=== PATIENT | male | born 1980 | race Caucasian/White ===

== ENCOUNTER 2022-12-12 07:32 | Emergency (ER) | payer BC, SELFPAY ==
--- NOTE | ~2022-12-12 | CT_ITS ---
EXAMINATION: CT ABDOMEN AND PELVIS WITH CONTRAST CLINICAL INFORMATION: Flank pain with white count of greater than 20,000 and history of renal calculi COMPARISON: None available. TECHNIQUE: Multidetector volumetric images were obtained from the superior aspect of the liver through the pubic symphysis following administration 85 mL of Omnipaque 350 intravenous contrast. Sagittal and coronal reformatted images were obtained on the technologist's workstation. Oral contrast: No This CT examination was performed using dose optimization techniques as appropriate, variously including the following: *Automated exposure control *Adjustment of mA and/or kV according to patient size (this includes techniques or standardized protocols for targeted exams where dose is matched to indication/reason for exam; i.e. extremities or head) *Use of iterative reconstruction technique DLP: 458 mGy-cm FINDINGS: LUNG BASES: The visualized lung bases are unremarkable. There is minimal elevation of the left hemidiaphragm LIVER, GALLBLADDER, AND BILIARY TREE: The liver is enlarged measuring 21.6 cm in cephalocaudad dimension. Attenuation difficult to rounder and backer after IV contrast.. 2 tiny hypodensities are seen in the liver the largest in the left lobe measuring at most 5 mm in size. This measures water density consistent with a benign cyst. No worrisome solid focal hepatic lesion or biliary ductal dilatation is present. The gallbladder is unremarkable with no evidence of radiopaque gallstones, gallbladder wall thickening, or obvious pericholecystic inflammatory changes. PANCREAS: Unremarkable. SPLEEN: Unremarkable. ADRENAL GLANDS: Unremarkable. KIDNEYS AND URETERS: The kidneys are normal in size, shape, and attenuation. There is a benign lower pole Bosniak class I left renal cyst present. No solid masses. No hydronephrosis, hydroureter, or calculi seen. No perinephric stranding. BLADDER: Unremarkable. GASTROINTESTINAL TRACT: Extensive colonic diverticular changes are present. In the proximal descending colon and there is an area of marked inflammatory change around the colon with associated thickening of the anterior pararenal fascia and lateral conal fascia. Tiny amount of ill-defined fluid is present but no drainable collections are seen. No extraluminal air is seen. Findings are consistent with acute uncomplicated diverticulitis. The small bowel is unremarkable. The appendix is not seen with certainty but there is no evidence of appendicitis appendicitis. ABDOMINAL WALL: No significant hernia is appreciated. LYMPH NODES: Normal. VASCULAR: Unremarkable. PELVIC VISCERA: Mild BPH. Seminal vesicles appear normal. OSSEOUS STRUCTURES: Unremarkable. CT/CT abdomen pelvis w IV con IMPRESSION: Acute uncomplicated diverticulitis involving the proximal descending colon. Fleischner guidelines were followed.
[2022-12-12 07:43] VITALS: BP 133/83; PULSE 80; RESP 18; TEMP 36.6; O2SAT 98; BMI 28.1
[2022-12-12 08:00] LABS: Appearance Urine Cloudy; Color Urine Dark Yellow; Glucose Urine UA Negative (Negative); Leukocyte Esterase Urine Negative (Negative); Nitrite Urine Negative (Negative); PH 5.5 (5.0-9.0); Specific Gravity - Urine 1.025 (1.005-1.025); UMIC TRIGGER UACC YES; Urine Blood Small (1+) (Negative); Urine Ketones Trace mg/dL (Negative); Urine Protein 30 (1+) mg/dL (Neg-Trace)
[2022-12-12 08:02] LABS: Bacteria Urine None Seen (None Seen); Hyaline Casts Urine 0-2 /LPF (0-2); Squamous Epithelial Cell Urine 0-2 /HPF (0-2); WBC Urine 0-5 /HPF (0-5)
[2022-12-12 08:07] LABS: Basophils Absolute Auto 0.1 X10*3/uL (0.0-0.2); Basophils Percent Auto 0.3 % (0-2); Eosinophils Absolute Auto 0.2 X10*3/uL (0.0-0.4); Eosinophils Percent Auto 0.9 % (0-4); Hematocrit 46.7 % (42.0-52.0); Hemoglobin 15.7 g/dl (14.0-18.0); Imm Gran Abs Auto 0.12 X10*3/uL (0.00-0.03); Imm Gran Pct Auto 0.6 % (0.0-0.4); Lymphocytes Absolute Auto 3.1 X10*3/uL (1.2-4.9); Lymphocytes Percent Auto 14.3 % (20-40); MANUAL DIFF FLAG SCAN; Mean Corpuscular HGB Conc 33.6 g/dl (31.0-36.0); Mean Corpuscular Hemoglobin 28.6 pg (27.0-33.0); Mean Corpuscular Volume 85.1 fL (80.0-98.0); Mean Platelet Volume 10.1 fL (9.4-12.4); Monocytes Absolute Auto 1.8 X10*3/uL (0.1-1.2); Monocytes Percent Auto 8.3 % (2-11); Neutrophils Absolute Auto 16.5 x10*3/uL (2.0-8.3); Neutrophils Percent Auto 75.6 % (45-73); Platelet Count 284 X10*3/uL (160-400); Red Blood Count 5.49 X10*6/uL (4.60-5.80); Red Cell Distribution Width 12.9 % (11.0-16.0); SCAN SMEAR FLAG 1; White Blood Count 21.8 X10*3/uL (4.8-10.8)
[2022-12-12 08:11] LABS: Anion Gap 13 (12-20); Blood Urea Nitrogen 10 mg/dL (9-16); Calcium 9.4 mg/dL (8.4-10.2); Carbon Dioxide 27 mmol/L (22-29); Chloride 104 mmol/L (96-108); Creatinine Clr Calc Pharmacy 97.5; Estimated Glomerular Filt Rate > 60; Glucose Random 120 mg/dL (60-115); Potassium 4.1 mmol/L (3.3-5.1); Sodium 140 mmol/L (135-145)
[2022-12-12 09:19] LABS: SLIDE REVIEW VERIFIED
--- NOTE | 2022-12-12 09:21 | ED.GENADULT ---
HPI - General Adult General Chief complaint: Abdominal Pain Stated complaint: abd pain Time Seen by Provider: 12/12/22 09:21 Source: patient Mode of arrival: ambulatory Limitations: no limitations History of Present Illness HPI narrative: Patient is a 42 year old assigned male at with a history of diverticulitis and kidney stones presenting to the emergency department today with abdominal pain. Patient states that over the last 2 days he has had abdominal pain and back pain. Patient states that his last bowel movement was yesterday and he has been nauseous but has not thrown up. Patient denies any dizziness, lightheadedness, vomiting, fever, chills, blurry vision, double vision, loss of vision, chest pain, difficulty breathing, shortness of breath, night sweats, pain with urination, increased urinary frequency, increased urinary urgency, blood in his urine or stool, syncope or a near syncopal episode, recent trauma or falls, bowel incontinence, bladder incontinence, bowel retention, bladder retention, or any other complaints at this time. Onset (ago): day(s) (2) Location: back and abdomen Severity: mild Severity scale (1-10): 4 Quality: aching and dull Pain Consistency: constant Relieving factors: none Exacerbating factors: none Associated symptoms: nausea/vomiting Treatments prior to arrival: none Related Data Previous Rx's Medication Instructions Recorded amoxicillin 875 mg tablet 875 mg PO BID 7 days #14 tabs 12/12/22 ondansetron 4 mg disintegrating 4 mg PO Q8H 3 days #9 tabs 12/12/22 tablet Allergies Allergy/AdvReac Type Severity Reaction Status Date / Time Sulfa (Sulfonamide AdvReac Eye Verified 12/12/22 07:43 Antibiotics) Swelling Review of Systems Constitutional: Constitutional: Reports no additional constitutional complaints, Denies chills, Denies fever(s) and Denies night sweats Eyes: Eyes: Reports no additional eye complaints, Denies blurry vision, Denies change in vision, Denies diplopia, Denies eye discharge, Denies loss of vision and Denies eye pain ENT: Denies dizziness Cardiovascular: Cardiovascular: Reports no additional cardiovascular complaints, Denies chest pain, Denies lightheadedness, Denies Loss of Consciousness and Denies dyspnea Respiratory: Respiratory: Reports no additional respiratory complaints and Denies dyspnea Gastrointestinal: Gastrointestinal: Reports no additional gastrointestinal complaints, Reports abdominal pain, Denies melena, Denies hematochezia, Denies change in bowel habits, Denies change in stool character, Reports nausea and Denies vomiting Genitourinary: Genitourinary: Reports no additional male genitourinary complaints, Denies hematuria, Denies oliguria, Denies difficulty urinating, Denies dysuria, Denies urinary frequency, Denies urinary hesitancy, Denies urinary incontinence and Denies urinary urgency Musculoskeletal: Musculoskeletal: Reports no additional musculoskeletal complaints, Denies numbness and Denies tingling Neurologic: Denies dizziness, Denies loss of vision, Denies numbness and Denies tingling Psychiatric: Psychiatric: Reports no additional psychiatric complaints Endocrine: Endocrine: Reports no additional endocrine complaints Hematologic/Lymphatic: Hematologic/Lymphatic: Reports no additional hematologic/lymphatic complaints Allergic/Immunologic: Allergic/Immunologic: Reports no additional allergic/immunologic complaints PMFSH Past Medical History Attestation statement: The following information was validated with the patient. Source: old records reviewed and nursing notes reviewed Social History Social History Advance Directives: No Physical Exam ED Vital Signs: Vital Signs - 24 hr 12/12/22 07:43 12/12/22 09:44 Temperature 97.8 F 99.0 F Pulse Rate 80 69 Respiratory Rate 18 16 Blood Pressure 133/83 120/72 Pulse Oximetry 98 98 Oxygen Delivery Method Room Air Room Air BMI result Body Mass Index 28.1 Const General: cooperative, no acute distress, alert and awake Nutritional Appearance: well nourished Orientation/consciousness: patient oriented x3 Limitations: no limitations [facility] Head: Yes normal to inspection and Yes atraumatic Ears: hearing grossly normal bilaterally and external ears normal General nose exam: Normal external nose present, no nasal discharge noted and no epistaxis Face and sinus: Yes normal facial exam, No abrasion and No laceration Mouth: Normal oral and palatal mucosa present, no drooling and no muffled voice Eyes General: appearance normal, both eyes and all related structures Periorbital: periorbital findings normal Eyelids: Yes eyelids normal Conjunctivae: conjunctivae normal Pupils: Equal, round and reactive pupils present EOM: EOMs intact bilaterally Neck Neck: Yes normal visual inspection, Yes full ROM and Yes no lymphadenopathy Chest Chest palpation & inspection: normal inspection of the chest Resp Effort & Inspection: normal respiratory effort and able to speak in complete sentences Auscultation: clear to auscultation bilaterally Cardio Rate: regular rate Rhythm: regular rhythm GI Inspection: Yes normal to inspection Palpation (GI): Soft to palpation, not firm, nontender, no guarding and not rigid General: Yes no CVA tenderness Back/Spine/Pelvis Back: no CVA tenderness Neuro General: patient oriented x3 and moves all extremities Cranial nerves: Yes Equal, round and reactive pupils present Cognition (Neuro): normal cognition Motor exam (neuro): 5/5 motor strength present throughout Sensory Exam: Normal double simultaneous stimulation for sensation Coordination: [id number] test normal Extrem General: Yes normal to inspection, Yes full ROM and Yes capillary refill normal Psych Appearance: grossly normal Mental Status: mental status grossly normal Affect: normal affect Attitude: cooperative Thought process: Normal thought process present Thought content: Normal thought content present Insight: Good insight present (Psych) Medications Administered Discontinued Medications Generic Name Dose Route Start Last Admin Trade Name Freq PRN Reason Stop Dose Admin Sodium Chloride 1,000 mls @ 999 mls/hr 12/12/22 09:30 12/12/22 10:45 Ns IV 12/12/22 10:30 Infused .Q1H1M [facility] Infusion Iohexol 100 ml 12/12/22 10:09 12/12/22 10:09 Iohexol 350 Mg/Ml 100 Ml Infus..Btl IV 12/12/22 10:10 85 ml ONCE ONE Administration Ketorolac Tromethamine 15 mg 12/12/22 09:25 12/12/22 09:48 Ketorolac Tromethamine 15 Mg/Ml Vial IVPUSH 12/12/22 09:26 15 mg ONCE ONE Administration Ondansetron HCl 4 mg 12/12/22 09:25 12/12/22 09:48 Ondansetron Hcl 4 Mg/2 Ml Vial IVPUSH 12/12/22 09:26 4 mg ONCE ONE Administration Medical Decision Making Medical Decision Making MDM Narrative: Patient is a 42 year old assigned male at with a history of diverticulitis and kidney stones presenting to the emergency department today with abdominal and back pain. Patient's physical exam was unremarkable. Patient's blood work showed an elevated WBC count of 21.8. Patient's urine showed no acute infectious process however, it did show blood. Given patient's elevated WBC count, hx of diverticulitis, and blood in his urine obtained an abdomen/pelvis CT with IV contrast to rule out obstructed kidney stone vs. diverticulitis. Patient's abdomen/pelvis CT showed diverticulitis with no evidence of perforation. I explained my physical exam findings as well as all test results to the patient. I answered all questions asked by the patient. I stressed the importance of the patient taking his medication as prescribed. I stressed the importance of the patient following up with his primary care provider and his GI specialist through the [facility]. I stressed the importance of the patient returning to the emergency department immediately if his symptoms were to worsen or if he were to develop any dizziness, shortness of breath, difficulty breathing, chest pain, blurry vision, loss of vision, nausea, vomiting, abdominal pain, fever, chills, back pain, or any other complaints. Patient verbalized agreement and understanding with this treatment plan and discharge. Differential Diagnosis Differential Diagnoses: The differential diagnosis associated with the presentation includes diverticulitis, kidney stone, obstructing stone Admission/Observation Consideration of admission/observation: Escalation of care including admission/observation considered Patient would have been admitted to the hospital had his work up had any findings where hospital admission was appropriate. Lab Data [facility] Lab Attestation statement: I reviewed the patient's lab results. My interpretation of these studies and their corresponding values is that they are grossly normal with the exception of the elevated WBC count and blood present in the urine as further explained in the [facility] portion of this chart. 12/12/22 07:52 12/12/22 07:52 Labs: Lab Results 12/12/22 12/12/22 12/12/22 Range/Units 07:52 07:52 07:52 WBC 21.8 H (4.8-10.8) X10*3/uL RBC 5.49 (4.60-5.80) X10*6/uL Hgb 15.7 (14.0-18.0) g/dl Hct 46.7 (42.0-52.0) % MCV 85.1 (80.0-98.0) fL MCH 28.6 (27.0-33.0) pg MCHC 33.6 (31.0-36.0) g/dl RDW 12.9 (11.0-16.0) % Plt Count 284 (160-400) X10*3/uL MPV 10.1 (9.4-12.4) fL Immature Gran % (Auto) 0.6 H (0.0-0.4) % Neut % (Auto) 75.6 H (45-73) % Lymph % (Auto) 14.3 L (20-40) % [place] % (Auto) 8.3 (2-11) % Eos % (Auto) 0.9 (0-4) % Baso % (Auto) 0.3 (0-2) % Lymph # (Auto) 3.1 (1.2-4.9) X10*3/uL [place] # (Auto) 1.8 H (0.1-1.2) X10*3/uL Eos # (Auto) 0.2 (0.0-0.4) X10*3/uL Baso # (Auto) 0.1 (0.0-0.2) X10*3/uL Abs Immat Gran (auto) 0.12 H (0.00-0.03) X10*3/uL Absolute Neuts (auto) 16.5 H (2.0-8.3) x10*3/uL Absolute Nucleated RBC 0.000 (0.0-0.012) X10*3/uL Nucleated RBC % (auto) 0.0 (0.0-0.2) /100WBC Smear Tech's Comments VERIFIED Sodium 140 (135-145) mmol/L Potassium 4.1 (3.3-5.1) mmol/L Chloride 104 (96-108) mmol/L Carbon Dioxide 27 (22-29) mmol/L Anion Gap 13 (12-20) BUN 10 (9-16) mg/dL Creatinine 1.02 (0.5-1.4) mg/dL Estim Creat Clear Calc 97.5 Estimated GFR > 60 Random Glucose 120 H (60-115) mg/dL Calcium 9.4 (8.4-10.2) mg/dL Urine Color Dark Yellow Urine Appearance Cloudy Urine pH 5.5 (5.0-9.0) Ur Specific [place] 1.025 (1.005-1.025) Urine Protein 30 (1+) H (Neg-Trace) mg/dL Urine Glucose (UA) Negative (Negative) mg/dL Urine Ketones Trace (Negative) mg/dL Urine Blood Small (1+) H (Negative) Urine Nitrite Negative (Negative) Ur Leukocyte Esterase Negative (Negative) Urine RBC 6-10 H (0-2) /HPF Urine WBC 0-5 (0-5) /HPF Ur Squamous Epith Cells 0-2 (0-2) /HPF Urine Bacteria None Seen (None Seen) Hyaline Casts 0-2 (0-2) /LPF Independent Interpretation I performed an independent interpretation of an: CT Scan Interpretation: My interpretation is in agreement with the radiologist's impression of this imaging study. EXAMINATION: CT ABDOMEN AND PELVIS WITH CONTRAST? CLINICAL INFORMATION: Flank pain with white count of greater than 20,000 and history of renal calculi? COMPARISON: None available. TECHNIQUE: Multidetector volumetric images were obtained from the superior aspect of the liver through the pubic symphysis following administration 85 mL of Omnipaque 350 intravenous contrast. Sagittal and coronal reformatted images were obtained on the technologist's workstation.? Oral contrast: No This CT examination was performed using dose optimization techniques as appropriate, variously including the following: *Automated exposure control *Adjustment of mA and/or kV according to patient size (this includes techniques or standardized protocols for targeted exams where dose is matched to indication/reason for exam; i.e. extremities or head) *Use of iterative reconstruction technique DLP: 458 mGy-cm FINDINGS: LUNG BASES: The visualized lung bases are unremarkable. There is minimal elevation of the left hemidiaphragm LIVER, GALLBLADDER, AND BILIARY TREE: The liver is enlarged measuring 21.6 cm in cephalocaudad dimension. Attenuation difficult to panel edge painter after IV contrast.. 2 tiny hypodensities are seen in the liver the largest in the left lobe measuring at most 5 mm in size. This measures water density consistent with a benign cyst. No worrisome solid focal hepatic lesion or biliary ductal dilatation is present. The gallbladder is unremarkable with no evidence of radiopaque gallstones, gallbladder wall thickening, or obvious pericholecystic inflammatory changes.? PANCREAS: Unremarkable.? SPLEEN: Unremarkable.? ADRENAL GLANDS: Unremarkable.? KIDNEYS AND URETERS: The kidneys are normal in size, shape, and attenuation. There is a benign lower pole Bosniak class I left renal cyst present. No solid masses. No hydronephrosis, hydroureter, or calculi seen. No perinephric stranding. ? BLADDER: Unremarkable.? GASTROINTESTINAL TRACT: Extensive colonic diverticular changes are present. In the proximal descending colon and there is an area of marked inflammatory change around the colon with associated thickening of the anterior pararenal fascia and lateral conal fascia. Tiny amount of ill-defined fluid is present but no drainable collections are seen. No extraluminal air is seen. Findings are consistent with acute uncomplicated diverticulitis. The small bowel is unremarkable. The appendix is not seen with certainty but there is no evidence of appendicitis appendicitis.? ABDOMINAL WALL: No significant hernia is appreciated.? LYMPH NODES: Normal. VASCULAR: Unremarkable. PELVIC VISCERA: Mild BPH. Seminal vesicles appear normal.? OSSEOUS STRUCTURES: Unremarkable.? CT/CT abdomen pelvis w IV con IMPRESSION: Acute uncomplicated diverticulitis involving the proximal descending colon. ? Fleischner guidelines were followed. Dictated By: Lloyd Marshall MD Signed By: Electronically signed by Lloyd Marshall MD 12/12/22 1025 Prescription Management I considered prescription management with: Antibiotic (patient was sent home on antibiotics for diverticulitis) Chronic Conditions Patient?s care impacted by: Other (diverticulitis) Critical Care Time Critical Care Time Critical Care Time: Yes Total Critical Care Time: 30 Attestation: I spent 30 minutes of Critical Care Time with this patient. This does not include time spent on separately reported billable procedures. Discharge Plan Discharge Clinical Impression: Diverticulitis Patient Disposition: Home, Self-Care Instructions: Diverticulitis (ED), Diverticulitis Diet (ED) Additional Instructions: Follow up with your primary care provider and your GI specailist. Return to the emergency department immediately if your symptoms worsen or if you develop any dizziness, shortness of breath, difficulty breathing, chest pain, blurry vision, loss of vision, nausea, vomiting, abdominal pain, fever, chills, back pain, or any other complaints. Prescriptions: New amoxicillin 875 mg tablet 875 mg PO BID 7 Days Qty: 14 0RF ondansetron 4 mg tablet,disintegrating 4 mg PO Q8H 3 Days Qty: 9 0RF Referrals: [facility] Family Medicine [Provider Group] (Call to establish and follow up with a primary care provider. If you already have a primary care provider, please follow up with them.) [facility] [Provider Group] (Call to establish and follow up with a primary care provider. If you already have a primary care provider, please follow up with them.) [facility] [Provider Group] (Call to establish and follow up with a primary care provider. If you already have a primary care provider, please follow up with them.) Stand Alone Forms: Work/School Release Interventions: ED Discharge Assessment Last Done: 12/12/22 10:45 Discharge Date/Time: 12/12/22 10:50 Print Language: Polish
--- OUTSIDE RECORDS SUMMARY | 2022-12-12 09:40 | XMS_ITS | Continuity of Care Document ---
Author Name Unknown Organization [facility] Address [address] [place] [id number]- Care Team Providers Care Pond Sawyer Name Role Phone Louis MURCIA MD, Darius Angel Primary Care Physician En[place] [facility] [place] Date[place]/25/21 - 02/24/[address] [address] Attending Physician: Laron Jiménez Admitting Physician: Laron Jiménez Referring Physician: Admtr, Laron Allergies, Adverse Reactions, Alerts Substance Reaction Severity Status sulfa drugs Active Eye Drops Active Medications albuterol albuterol, Refills 0, Maintenance, 09/30/17 17:31:08 EDT, Compound Start Date: 09/30/17 Status: Ordered clindamycin 150 mg oral capsule 1 capsule = 150 mg, By Mouth, Every 6 hours, # 28 capsule, 0 Refills Start Date: 06/30/09 Stop Date: 07/07/09 Status: Ordered diclofenac 1% topical gel = 4 Gm, Topically, 4 times a day, Dx: OA, # 100 Gm, 3 Refills, Maintenance, 10/28/17 15:24:12 EDT, Gel, 4 Gm Topically 4 times a day,x30 days,Instr:Dx: OA Start Date: 10/28/17 Stop Date: 02/25/18 Status: Ordered meloxicam 15 mg oral tablet 1 tablet = 15 mg, By Mouth, Daily, # 7 tablet, 1 Refills, Maintenance, 10/28/17 15:22:36 EDT, Tablet Start Date: 10/28/17 Stop Date: 11/11/17 Status: Ordered Vicodin 500 mg-5 mg oral tablet See Instructions, PRN Pain, 1 to 2 tablets By Mouth Every 6 hours as needed for pain, # 16 tablet, 0 Refills Start Date: 06/30/09 Stop Date: 07/07/09 Status: Ordered
--- OUTSIDE RECORDS SUMMARY | 2022-12-12 09:40 | XMS_ITS | Continuity of Care Document ---
Author Name Unknown Organization [facility] Address [address] [place] [address]- Care Team Providers Care Lead Worker Of Housekeeping And Laundry Name Role Phone Louis MURCIA MD, Darius Angel Primary Care Physician [phone] [id number] Date(s): 10/17/20 - 03/27/[address] [address]- Discharge Disposition: A-D/C Home Attending Physician: Bayron Celis MD Admitting Physician: Bayron Celis MD Referring Physician: Bayron Celis MD Allergies, Adverse Reactions, Alerts Substance Reaction Severity [...]
[2022-12-12 09:44] VITALS: BP 120/72; PULSE 69; RESP 16; TEMP 37.2; O2SAT 98
[2022-12-12] MEDS: 0.9 % Sodium Chloride 1,000 ML 999 ML IV (09:46)
[2022-12-12] MEDS: Ketorolac Tromethamine 15 MG/ML VIAL IVPUSH (09:48)
[2022-12-12] MEDS: ondansetron HCL 4 MG/2 ML VIAL IVPUSH (09:48)
[2022-12-12] MEDS: iohexoL 350 MG/ML 100 ML INFUS..BTL IV (10:09)
== END 2022-12-12 10:50 | disposition home or self-care (01) ==
PROVIDERS: Emergency Provider Internal Medicine
DX: K57.32 Diverticulitis of large intestine without perforation or abscess without bleeding (principal); R10.9 Unspecified abdominal pain
CPT/HCPCS: 36415; 74177; 80048; 81001; 85025; 96361; 96374; 96375; 99284; J1885; J2405; Q9967